=== PATIENT | male | born 1955 | race Caucasian/White ===

== ENCOUNTER → 2019-02-19 | Outpatient (CLI) | payer MEDICARE | LOC: M.RAD 13:37 | DX: M85.612 Other cyst of bone, left shoulder (principal); M47.812 Spondylosis without myelopathy or radiculopathy, cervical region ==

== ENCOUNTER → 2019-05-19 | Day surgery (SDC) | payer MEDICARE ==
[~2019-05-19] MED LIST: ACETAMINOPHEN650 M5 PO; ARTHRITIS PAIN57 GM TOP; ASA81BEC PO; AZELASTINE205.5 MCG/ NARES; BUPROPION XL450 MG PO; CLARITIN10 MG PO; FEOSOL325 M1 PO; FLONASE 0.05%50 MCG NASAL; GLUCOSAMINE &1 EAC1 PO; LEXAPRO20 MG PO; METFORMIN HCL1000 M1 PO; MULTIVITAMINS1 EAC7 PO; MYRBETRIQ50 MG PO; NORVASC 2.5 MG2.5 M1 PO; OMEPRAZOLE 20 M20 M1 PO; PERCOCET 5-3251 EACH PO; PRINIVIL40 MG PO; RISPERDAL 1 MG T1 MG PO; SINGULAIR 10 MG10 M1 PO; TERAZOSIN HCL5 MG PO; TOPROL XL50 MG; TRAZODONE 150150 M1 PO; VITAMIN C500 M1 PO; ZOCOR 10 MG TAB10 M1 PO
[2019-05-19 12:28] LABS: HEMATOCRIT 33.5 % (42.0-52.0); HEMOGLOBIN 11.2 gm/dL (14.0-18.0); MCH 29.5 pg (26.0-34.0); MCHC 33.3 g/dL (28.0-37.0); MCV 88.5 fL (80.0-100.0); MPV 6.9 fl. (7.2-11.1); RBC 3.79 mil/uL (4.50-6.00); RDW-CV 14.1 % (10.5-14.5); WBC 12.3 thou/uL (4.0-11.0)
[2019-05-19 12:38] LABS: CALCIUM 8.7 mg/dL (8.5-10.1); POTASSIUM 3.4 mmol/L (3.5-5.1)
[2019-05-19 12:43] LABS: ALBUMIN 3.8 g/dL (3.4-5.0); TOTAL BILIRUBIN 0.3 mg/dL (<0.1-1.0); TOTAL PROTEIN 7.4 g/dL (6.4-8.2)
--- NOTE | 2019-05-20 10:57 | EKG ---
[place] [address] ELECTROCARDIOGRAM REPORT Name: KAINFLORINAJEANNIE RE Room: [facility]#: [id number] Admission: 05/19/19 Attend Phys: Tan Stringer DO Discharge: Date of : 59 Report #: [id number] THIS REPORT FOR: //name// 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 : 1955 Requested By: Tan Stringer Order Number: [id number] Reading MD: Kaleb Farnsworth Measurements Intervals [place] Rate: 61 P: 61 FL: 183 QRS: 21 QRSD: 102 T: 50 QT: 493 QTc: 497 Interpretive Statements Sinus rhythm Probable left ventricular hypertrophy Borderline prolonged QT interval Nonspecific ST-T wave abnormality No previous ECG available for comparison Electronically Signed On 05-20-2019 10:57:26 FUR WEIGHER by Kaleb Farnsworth [email or web address] <ELECTRONICALLY SIGNED> By: Kaleb Farnsworth MD, [facility] 05/20/19 1057 1224 1224 Kaleb Farnsworth MD, FACC /EPI
--- NOTE | 2019-06-01 08:20 | OP ---
[address] [address] OPERATIVE REPORT Name: JEANNIE VARELA Room: [facility].#: [id number] Admission: 05/19/19 Attend Phys: Tan Stringer DO Discharge: Date of : 59 Report #: [id number] THIS REPORT FOR: //name// CC: Tan Wolf DO DATE OF SERVICE: 05/19/2019 REFERRING PHYSICIAN: Parker Wolf DO PREOPERATIVE DIAGNOSIS: Right inguinal hernia. POSTOPERATIVE DIAGNOSIS: Bilateral inguinal hernias and intraabdominal adhesions. PROCEDURE: Da Harrison robotic-assisted laparoscopic bilateral inguinal hernia repair with mesh and lysis of adhesions lasting more than 30 minutes. SURGEON: Tan Stringer DO [employer]: Dr. Cindy Plummer. ANESTHESIA: General endotracheal. ESTIMATED BLOOD LOSS: Less than 20 mL. COMPLICATIONS: None. DESCRIPTION OF PROCEDURE: After obtaining proper consents and discussing risks and complications with the patient, he was taken to the operating room, laid in the supine position, administered general endotracheal anesthetic. TAP blocks were also performed by Anesthesia prior to the surgery. The patient was then prepped and draped in the usual sterile fashion. A timeout was performed. We confirmed the appropriate patient and procedure. Preoperative antibiotics had been given. SCDs were in place. We then made a small supraumbilical skin incision with a #11 scalpel blade. This was carried down through the skin into the subcutaneous tissue using electrocautery for hemostasis. Once the fascia was encountered, it was incised along the midline, grasped and elevated with Logan clamps. The peritoneum was then bluntly opened using a hemostat. A 2-0 Vicryl sutures were then placed in a [id number] fashion to secure the da Harrison camera port, which was then inserted and insufflation was begun. Once insufflation was complete, full visual inspection of the anterior abdominal organs was performed. This revealed some adhesions along the left lower abdomen. We were unable to visualize the left inguinal region at this point, but we could identify a right indirect inguinal hernia. We then placed [place] [address] OPERATIVE REPORT Name: AVERYJEANNIEJohanna GRIMALDO Room: [facility].#: [id number] Admission: 05/19/19 Attend Phys: Tan Stringer, Discharge: Date of : 59 Report #: [id number] trocars, a 12 mm trocar was placed in the right upper quadrant 8.5 mm da Harrison port in the left upper quadrant. We then docked the da Harrison robot and inserted monopolar sheri and bipolar fenestrated grasper. I then broke scrub and went on console. Once on console, I was able to take down the adhesions in the left side. This was primarily the sigmoid colon adherent to the abdominal wall along with some omentum. These were cautiously taken down, taking approximately 30 minutes to take them down completely and then we were able to identify smaller left indirect inguinal hernia. We elected to proceed with bilateral inguinal hernia repairs. I opened the peritoneum from the median umbilical ligament laterally to the ASIS on the left side first. I then dissected the preperitoneal space all the way down to the pubic ramus medially. I then continued my dissection laterally and identified the hernia sac, which was dissected free from the cord and cord structures. I was able to visualize all the cord structures including the vas deferens. I then continued the dissection laterally all the way beyond the ASIS. Once the space was large enough to fit a large Bard 3DMax mesh, I then turned my attention to the right side. Then, again opened the peritoneum from the median umbilical ligament laterally to the ASIS. I then used blunt dissection to dissect all the way down to the pubic ramus medially and I then continued the dissection laterally using blunt dissection as well as electrocautery to free the much larger indirect inguinal hernia sac from the cord and cord structures. I did make a hole in the hernia sac while I was dissecting this free, which we repaired at a later time at the end of the procedure. I continued the dissection until the hernia sac was easily reduced back into the peritoneal cavity and then continued laterally all the way out to the ASIS to allow for placement of a large Bard 3DMax mesh. We then inserted the mesh in both the right and left side. The meshes were sutured in place to Alvaro's ligament medially and then also medial and lateral to the inferior epigastric vessels using a 2-0 Vicryl suture. I then closed the peritoneal flaps using a running 2-0 absorbable V-Loc suture. The hole in the peritoneum on the patient's right side was closed using 2-0 Vicryl suture in an interrupted fashion. I then removed all of the needles. I then rescrubbed and went back to the patient's bedside. The da Harrison robot was undocked. The ports were all removed, the 12 mm right upper quadrant port. The fascia was closed using a PMI closure device with 0 Vicryl suture. The skin incisions were all closed using 4-0 Monocryl subcuticular stitches. Mastisol, Steri-Strips, sterile OpSite and pressure dressings were placed. The patient was awakened in the operating room and transported to recovery room in stable condition. <ELECTRONICALLY SIGNED> By: Tan Stringer DO 06/01/19 0820 1715 1908Aariel Stringer DO /nt
== END | disposition home or self-care (01) ==
LOC: M.SUR 06:45
PROVIDERS: Surgery
DX: K40.20 Bilateral inguinal hernia, without obstruction or gangrene, not specified as recurrent (principal); K66.0 Peritoneal adhesions (postprocedural) (postinfection); Z98.890 Other specified postprocedural states; Z79.899 Other long term (current) drug therapy; Z88.8 Allergy status to other drugs, medicaments and biological substances; Z79.82 Long term (current) use of aspirin